=== PATIENT | male | born 1980 | race Caucasian/White ===

== ENCOUNTER 2019-06-11 14:30 | Emergency (ER) | payer MEDICAID ==
[~2019-06-11] VITALS: Ht 165.1 cm; Wt 102.5 kg
[2019-06-11 14:34] VITALS: Ht 165.1 cm; Wt 102.5 kg
[2019-06-11] MEDS ORDERED: ATORVASTATIN CA40 M1 PO (16:04)
[2019-06-11] MEDS ORDERED: ROBAXIN-750750 MG PO (16:05)
[2019-06-11 19:24] VITALS: BP 119/74
== END 2019-06-11 19:24 | disposition home or self-care (01) ==
LOC: ED 14:30
DX: M54.5 Low back pain (principal); M54.6 Pain in thoracic spine; E78.00 Pure hypercholesterolemia, unspecified
CPT/HCPCS: J1885